=== PATIENT | female | born 1975 | race Caucasian/White ===

== ENCOUNTER → 2016-07-23 | Outpatient (CLI) | payer OTHER ==
--- NOTE | 2016-07-23 17:33 | US ---
EXAMINATION TYPE: US pelvic complete DATE OF EXAM: 07/23/2016 3:39 PM COMPARISON: NONE CLINICAL HISTORY: N94.6 Dysmenorrhea. Endometrial ablation 2 years ago; C Section x 2; TECHNIQUE: Transvaginal (TV) as patient's bladder not full and patient chose to have TV US. Date of LMP: 06/07/2016 EXAM MEASUREMENTS: Uterus: 10.0 x 5.4 x 4.8 cm Endometrial Stripe: 0.7 cm Right Ovary: 3.3 x 2.9 x 2.1 cm Left Ovary: 3.0 x 2.2 x 2.0 cm TECHNOLOGIST IMPRESSION: 1. Uterus: Retroverted; oval hypoechoic mixed area (uterine fibroid) at upper myometrium =0.8 x 1.1 x 0.7cm; small cyst in upper left myometrium = 0.3 x 0.3 x 0.3cm ; small cyst at lower uterine segme nt = 0.6 x 0.6 x 0.4cm 2. Endometrium: appearance is wnl, but unable to correlate thickness with LMP of 47days 3. Right Ovary: multiple small follicles 4. Left Ovary: multiple small follicles and largest =1.2 x 1.1 x 1.2cm Spectral, color and waveform doppler imaging shows good arterial and venous flow within the ovaries ; there is no evidence for ovarian torsion. 5. Bilateral Adnexa: wnl 6. Posterior cul-de-sac: small amount of free fluid = 3.9 x 1.9 x 0.6cm IMPRESSION: No endometrial thickening. There is a small amount of fluid in the cul-de-sac. No solid a dnexal mass.
== END | disposition home or self-care (01) ==
LOC: RADUSWWP 15:03
PROVIDERS: ATTEND Obstetrics & Gynecology
DX: N94.6 Dysmenorrhea, unspecified (principal)
CPT/HCPCS: 76830

== ENCOUNTER → 2016-08-16 | Outpatient (CLI) | payer OTHER ==
[2016-08-16 10:42] LABS: Basophils % (A) 1 %; CH 28.1; CHCM 32.3; Eosinophils % (A) 1 %; HCT 40.9 % (34.0-46.0); HDW 2.32; Luc # (Auto) 0.12; Luc % (Auto) 2; Lymphocytes # (A) 1.7 k/uL (1.0-4.8); Lymphocytes % (A) 31 %; MCH 27.9 pg (25.0-35.0); MCHC 31.9 g/dL (31.0-37.0); MCV 87.4 fL (80.0-100.0); Mean Platelet Volume 6.6; Monocytes # (A) 0.2 k/uL (0-1.0); Monocytes % (A) 4 %; Neutrophils # (A) 3.3 k/uL (1.3-7.7); Neutrophils % (A) 61 %; RBC 4.68 m/uL (3.80-5.40); RDW 13.1 % (11.5-15.5); WBC 5.4 k/uL (3.8-10.6); WBC (Perox) 5.84
[2016-08-16 11:08] LABS: Anion Gap 8 mmol/L; Blood Urea Nitrogen 12 mg/dL (7-17); Carbon Dioxide 27 mmol/L (22-30); Chloride 104 mmol/L (98-107); Glucose 95 mg/dL (74-99); Non-African American GFR(MDRD) >60 (>60 ml/min/1.73 sqM); Potassium 4.5 mmol/L (3.5-5.1); Sodium 139 mmol/L (137-145)
== END | disposition home or self-care (01) ==
LOC: LABPAT 10:17
PROVIDERS: ATTEND Obstetrics & Gynecology
DX: Z01.818 Encounter for other preprocedural examination (principal)
CPT/HCPCS: 80048; 85025

== ENCOUNTER 2016-08-23 06:00 | Observation (INO) | payer OTHER ==
[2016-08-17 16:20] VITALS: BMI 34.3
--- NOTE | 2016-08-22 16:24 | P.HPOB ---
History of Present Illness H&P Date: 08/22/16 Chief Complaint: dysmenorrhea 41 year old presents for TLH with da justin due to dysmenorrhea that worsened after an ablation. Review of Systems All systems: negative Constitutional: Denies chills, Denies fever Eyes: denies blurred vision, denies pain Ears, nose, mouth and throat: Denies headache, Denies sore throat Cardiovascular: Denies chest pain, Denies shortness of breath Respiratory: Denies cough Gastrointestinal: Denies abdominal pain, Denies diarrhea, Denies nausea, Denies vomiting Genitourinary: Denies dysuria, Denies hematuria Musculoskeletal: Denies myalgias Integumentary: Denies pruritus, Denies rash Neurological: Denies numbness, Denies weakness Psychiatric: Denies anxiety, Denies depression Endocrine: Denies fatigue, Denies weight change Past Medical History Past Medical History: Deep Vein Thrombosis (DVT), Thyroid Disorder Additional Past Medical History / Comment(s): GOITER ON THE THYROID, DVT-LEFT LEG History of Any Multi-Drug Resistant Organisms: None Reported Past Surgical History: Section Additional Past Surgical History / Comment(s): C SECTION X 2, UTERINE ABLATION, HYSTEROSCOPY Past Anesthesia/Blood Transfusion Reactions: No Reported Reaction Past Psychological History: Depression Smoking Status: Former smoker Past Alcohol Use History: Rare Additional Past Alcohol Use History / Comment(s): STARTED SMOKING AGE AT 22 AND QUIT AT AGE 23, SMOKED 1/2 PPD Past Drug Use History: None Reported - Past Family History Mother Family Medical History: No Reported History Medications and Allergies Home Medications Medication Instructions Recorded Confirmed Type Escitalopram [Lexapro] 10 mg PO HS 08/25/15 08/17/16 History Levothyroxine Sodium [Synthroid] 25 mcg PO DAILY 08/17/16 08/17/16 History Allergies Allergy/AdvReac Type Severity Reaction Status Date / Time No Known Allergies Allergy Verified 08/17/16 15:58 Exam Osteopathic Statement: *. No significant issues noted on an osteopathic structural exam other than those noted in the History and Physical/Consult. Heart: RRR Lungs: CTAB Abdomen: soft, nontender Extremeties: neg flor's Assessment and Plan (1) Dysmenorrhea Status: Acute Plan: 1. TLH with Da Justin, possible BSO, possible KENRICK BSO.
[~2016-08-23 06:00] MED LIST: DEXAMETHASONE SOD PHOSPHATE 10 MG/ML 1 ML VIAL IV ONE; LIDOCAINE 1% 20 ML VIAL (10MG/ML) FOR IV START INTRADERMA PRN; ONDANSETRON 4 MG/2 ML VIAL IVP ONE; SCOPOLAMINE 1.5MG/72HR PATCH TRANSDERM ONE; ceFAZolin 2 GM in SODIUM CHLORIDE 0.9% 100 ML IVPB ONE
[2016-08-23] MEDS: LACTATED RINGERS 1,000 ML IV SCH ×4 (06:40→14:19)
[2016-08-23] MEDS ORDERED: LIDOCAINE 1% 20 ML VIAL (10MG/ML) FOR IV START INTRADERMA ONE (06:54)
[2016-08-23] MEDS ORDERED: KETOROLAC 30 MG/ML 1 ML VIAL ONE (07:15)
[2016-08-23] MEDS ORDERED: NEOSTIGMINE 1 MG/ML 10 ML VIAL ONE (07:15)
[2016-08-23] MEDS ORDERED: KETAMINE 10 MG/ML 20 ML VIAL ONE (07:15)
[2016-08-23] MEDS ORDERED: GLYCOPYRROLATE 0.2 MG/ML 2 ML VIAL ONE (07:15)
[2016-08-23] MEDS ORDERED: ROCURONIUM BROMIDE 10 MG/ML 10 ML VIAL IV ONE (07:15)
[2016-08-23] MEDS ORDERED: fentaNYL (PF) 50 MCG/ML 2 ML AMP ONE (07:15)
[2016-08-23] MEDS ORDERED: LIDOCAINE 2% SYG (PF) 100 MG/5 ML ONE (07:15)
[2016-08-23] MEDS ORDERED: ACETAMINOPHEN IV (For NPO) 1,000 MG/100 ML VIAL ONE (07:15)
[2016-08-23] MEDS ORDERED: MIDAZOLAM 2 MG/2 ML VIAL ONE (07:15)
[2016-08-23] MEDS ORDERED: PROPOFOL 10 MG/ML 20 ML VIAL IV ONE (07:15)
[2016-08-23] MEDS ORDERED: BUPIVACAINE (PF) 0.25% 30 ML VIAL SQ ONE (07:32)
[2016-08-23] MEDS ORDERED: LACTATED RINGERS 1,000 ML IV ONE ×2 (08:47)
--- NOTE | 2016-08-23 09:08 | P.OP ---
Date of Procedure: 08/23/16 Preoperative Diagnosis: Dysmenorrhea Postoperative Diagnosis: 1. Dysmenorrhea Procedure(s) Performed: Total laparoscopic hysterectomy with left salpingectomy using da Carissa Anesthesia: ALESSIA Surgeon: Bessie Hernández Comic Book Artist #1: Warner Levy Estimated Blood Loss (ml): 50 IV fluids (ml): 600 Urine output (ml): 100 Pathology: other (Uterus, cervix, left fallopian tube) Condition: stable Disposition: PACU Operative Findings: Normal uterus, left fallopian tube was scarred to the left ovary and looked mildly dilated, normal right fallopian tube normal bilateral ovaries Description of Procedure: Patient taken the operating room where general anesthesia was obtained without difficulty. She is prepped and draped in normal sterile fashion dorsal lithotomy position, legs placed in the Sam stirrups. Weighted speculum placed in the vagina and the anterior lip the cervix was grasped with single- tooth tenaculum. The uterus sounded to 6 cm and the cervix diameter was 3.5 cm. The appropriate manipulator tip and ring were placed on the Rachel manipulator. The Rachel manipulator was then placed in the uterus. Richmond catheter was also placed. Attention was then turned to the abdomen and gloves were changed. A 5 mm supraumbilical incision was made the scalpel and a 5 mm optical trocar was placed under direct visualization. 10 cm to the right of this and 2 cm down a 5 mm incision was made and 8 mm da Carissa port was placed under direct visualization. Same measurements on the opposite side of the patient's abdomen, the 5 mm incision was made and 8 mm da Carissa port was placed under direct visualization. In the left upper quadrant a 10 mm incision was made and a 10 mm optical trocar was placed under direct visualization. The 5 mm optical trocar was then replaced with the 8 mm da Carissa camera port. The robot was docked on patient's right side. The camera was introduced and then the monopolar curved scissor and [place] bipolar placed under direct visualization. I broke scrub and went to the physician console. The left mesosalpinx was cauterized with the [place] bipolar and cut with monopolar curved scissors to help remove the left fallopian tube. The left utero-ovarian ligament was cauterized with the [place] bipolar and cut with monopolar curved scissors. The left round ligament was cauterized with the [place] bipolar and cut with monopolar curved scissors. The posterior leaf of the broad ligament was taken down using the monopolar curved scissors. Anterior leaf of the broad ligament was then taken down using the monopolar curved scissors. The uterine artery was cauterized with the [place] bipolar and cut with monopolar curved scissors. The bladder flap was then started using the monopolar curved scissors. Attention was then turned to the right side of the patient's anatomy and the right infundibular pelvic ligament was cauterized with the [place] bipolar and cut with monopolar curved scissors. The right round ligament was cauterized with the [place] bipolar and cut with monopolar curved scissors. Posterior leaf of the broad ligament was taken down using the monopolar curved scissors and the anterior leaf was taken down using the monopolar curved scissors. The uterine artery was cauterized the [place] bipolar cut with monopolar curved scissors. The bladder flap was then finished on this side. Anterior colpotomy was made using the monopolar curved scissors. The rest of the uterus was from the vaginal cuff by following the ring around with the monopolar curved scissors through the uterosacral ligaments back to the anterior portion. Once the uterus and cervix were amputated they were pulled through the vaginal cuff. Hemostasis was assured. The instruments were changed for the Cardier forcep and the bri suture cut. The vaginal cuff was then closed using O stratafix barbed suture in a running fashion. The pelvis was irrigated and there was some oozing on the left portion of the vaginal cuff. 0 Vicryl was used in a [id number] stitch to achieve hemostasis. Hemostasis was again assured and the pelvis was irrigated. All instruments were removed from the abdomen and the robot was undocked. I scrubbed back in to perform a cystoscopy. There were jets from both ureteral orifices. The abdominal incisions were closed with 4-0 Vicryl in a subcuticular fashion. Patient tolerated the procedure well, sponge and instrument counts correct 2 and she was taken to recovery room in stable condition condition
[2016-08-23] MEDS: HYDROmorphone 1 MG/ML 1 ML SYRINGE IVP PRN ×4 (09:17→09:55)
[2016-08-23] MEDS ORDERED: diphenhydrAMINE 50 MG/ML 1 ML VIAL IVP PRN (09:47)
[2016-08-23] MEDS ORDERED: ONDANSETRON 4 MG/2 ML VIAL IVP PRN (09:47)
[2016-08-23] MEDS ORDERED: SIMETHICONE 80 MG CHEWABLE PO PRN (09:47)
[2016-08-23] MEDS ORDERED: METOCLOPRAMIDE 5 MG/ML 2 ML VIAL IVP PRN (09:47)
[2016-08-23] MEDS ORDERED: ZOLPIDEM 5 MG TAB PO PRN (09:47)
[2016-08-23] MEDS ORDERED: IBUPROFEN 600 MG TAB PO PRN (09:47)
[2016-08-23] MEDS: Acetaminophen-Codeine 300-30mg TAB PO PRN ×3 (11:45→18:37)
[2016-08-23] MEDS: KETOROLAC 30 MG/ML 1 ML VIAL IVP PRN ×2 (14:19→20:35)
[2016-08-23] MEDS: SENNOSIDES-DOCUSATE SODIUM 1 EACH TAB PO SCH (20:34)
[2016-08-23] MEDS ORDERED: ESCITALOPRAM 10 MG TAB PO SCH (21:00)
[2016-08-24] MEDS: Acetaminophen-Codeine 300-30mg TAB PO PRN ×2 (00:37→06:17)
[2016-08-24] MEDS: KETOROLAC 30 MG/ML 1 ML VIAL IVP PRN ×2 (03:24→09:22)
[2016-08-24 04:55] VITALS: RESP 20
[2016-08-24] MEDS ORDERED: LEVOTHYROXINE 25 MCG TAB PO SCH (06:30)
[2016-08-24 07:02] LABS: Basophils % (A) 0 %; CH 27.7; Eosinophils % (A) 0 %; HCT 37.4 % (34.0-46.0); HDW 2.28; HGB 11.9 gm/dL (11.4-16.0); Luc % (Auto) 1; Lymphocytes # (A) 2.2 k/uL (1.0-4.8); Lymphocytes % (A) 23 %; MCH 27.8 pg (25.0-35.0); MCHC 31.9 g/dL (31.0-37.0); MCV 87.1 fL (80.0-100.0); Mean Platelet Volume 6.6; Monocytes # (A) 0.4 k/uL (0-1.0); Monocytes % (A) 5 %; Neutrophils # (A) 6.5 k/uL (1.3-7.7); Neutrophils % (A) 71 %; RDW 13.1 % (11.5-15.5); WBC 9.2 k/uL (3.8-10.6); WBC (Perox) 10.25
[2016-08-24 07:25] LABS: Manual Review Performed
[2016-08-24] MEDS: SENNOSIDES-DOCUSATE SODIUM 1 EACH TAB PO SCH (08:03)
[2016-08-24 08:40] VITALS: BP 101/70; PULSE 78; TEMP 97.5
--- NOTE | 2016-08-24 09:03 | P.DS ---
Providers Date of admission: 08/23/16 20:47 Expected date of discharge: 08/24/16 Attending physician: Bessie Hernández Primary care physician: Sara Gallardo - Discharge Diagnosis(es) (1) Dysmenorrhea Current Visit: Yes Status: Acute Hospital Course: Patient presented for total laparoscopic hysterectomy using the da Carissa robot. She underwent this procedure without complication. Her postoperative course was uneventful. She is passing flatus tolerating regular diet. Ambulating and voiding without difficulty. She denies nausea, vomiting, chest pain, shortness of breath or calf pain. She'll be discharged home postoperative day #1 in stable condition to follow-up with me in 3 weeks. Plan - Discharge Summary New Discharge Prescriptions: Acetaminophen-Codeine 300-30mg [Tylenol #3] 2 tab PO Q6H PRN #30 tablet PRN Reason: Pain Ibuprofen [Motrin] 600 mg PO Q6HR PRN #30 tab PRN Reason: Mild Pain Or Fever >= 100.5 Discharge Medication List Escitalopram [Lexapro] 10 mg PO HS 08/25/15 [History] Levothyroxine Sodium [Synthroid] 25 mcg PO DAILY 08/17/16 [History] Acetaminophen-Codeine 300-30mg [Tylenol #3] 2 tab PO Q6H PRN #30 tablet [Rx] Ibuprofen [Motrin] 600 mg PO Q6HR PRN #30 tab 08/24/16 [Rx]
== END 2016-08-24 11:00 | disposition home or self-care (01) ==
LOC: OR 06:00 → 6PED 08:42 → OR 20:47
PROVIDERS: ADMIT Obstetrics & Gynecology; ATTEND Obstetrics & Gynecology
DX: N94.6 Dysmenorrhea, unspecified (principal); Z86.718 Personal history of other venous thrombosis and embolism; E04.9 Nontoxic goiter, unspecified; Z87.891 Personal history of nicotine dependence; Z79.899 Other long term (current) drug therapy; F32.9 Major depressive disorder, single episode, unspecified
CPT/HCPCS: 58571; S2900; 81025; 85025; 86850; 86900; 86901; 88307; 96374; 96376

== ENCOUNTER 2016-10-01 20:38 | Inpatient (IN) | payer OTHER ==
[2016-10-01] MEDS ORDERED: KETOROLAC 30 MG/ML 1 ML VIAL IVP STA (22:09)
[2016-10-01] MEDS ORDERED: SODIUM CHLORIDE 0.9% 1,000 ML IV STA (22:09)
[2016-10-01] MEDS ORDERED: RX INFO: IV CONTRAST WAS GIVEN 1 EACH MISC MISCELLANE PRN (22:09)
--- NOTE | 2016-10-01 22:19 | ED ---
Abdominal Pain HPI - General Source: patient, RN notes reviewed Mode of arrival: ambulatory Limitations: no limitations <Luann Hammonds - Last Filed: 10/02/16 03:02> <Breezy Goldstein - Last Filed: 10/04/16 02:59> - General Chief Complaint: Abdominal Pain Stated Complaint: L Flank Pain-Post Op 5wks Time Seen by Provider: 10/01/16 22:02 - History of Present Illness Initial Comments: 41-year-old female presents to the emergency department with a chief complaint of right flank pain radiates in the right lower quadrant. Patient states she's had this since about 5:00 today. Patient states she is about 5 weeks post hysterectomy. Patient states she hasn't had any fever chills. Patient states she has had some nausea. Patient denies any changes in bowel or bladder habits. Patient states just this constant pain that does not seem to go away. Patient states she has had pelvic pain in the past prior to the hysterectomy but this is different. Patient states that she was concerned due to her continued pain so she thought that she should be evaluated.Patient denies any recent fever, chills, shortness of breath, chest pain, back pain, vomiting, numbness or tingling, dysuria or hematuria, constipation or diarrhea, headaches or visual changes, or any other current symptoms. (Luann Hammonds) - Related Data Home Medications Medication Instructions Recorded Confirmed Escitalopram [Lexapro] 10 mg PO DAILY 08/25/15 10/01/16 Levothyroxine Sodium [Synthroid] 50 mcg PO HS 10/01/16 10/01/16 Allergies Allergy/AdvReac Type Severity Reaction Status Date / Time No Known Allergies Allergy Verified 10/01/16 22:21 Review of Systems ROS Other: All systems not noted in ROS Statement are negative. <Luann Hammonds - Last Filed: 10/02/16 03:02> ROS Other: All systems not noted in ROS Statement are negative. <Breezy Goldstein - Last Filed: 10/04/16 02:59> ROS Statement: Those systems with pertinent positive or pertinent negative responses have been documented in the HPI. Past Medical History Past Medical History: Deep Vein Thrombosis (DVT), Thyroid Disorder Additional Past Medical History / Comment(s): GOITER ON THE THYROID, DVT-LEFT LEG History of Any Multi-Drug Resistant Organisms: None Reported Past Surgical History: Section, Hysterectomy Additional Past Surgical History / Comment(s): C SECTION X 2, UTERINE ABLATION, HYSTEROSCOPY Past Anesthesia/Blood Transfusion Reactions: No Reported Reaction Past Psychological History: Anxiety, Depression Smoking Status: Former smoker Past Alcohol Use History: Rare Additional Past Alcohol Use History / Comment(s): STARTED SMOKING AGE AT 22 AND QUIT AT AGE 23, SMOKED 1/2 PPD Past Drug Use History: None Reported - Past Family History Mother Family Medical History: No Reported History <Luann Hammonds - Last Filed: 10/02/16 03:02> General Exam Limitations: no limitations <Luann Hammonds - Last Filed: 10/02/16 03:02> <Breezy Goldstein - Last Filed: 10/04/16 02:59> - General Exam Comments Initial Comments: General: The patient is awake and alert, in no distress, and does not appear acutely ill. Eye: Pupils are equal, round and reactive to light, extra-ocular movements are intact; there is normal conjunctiva bilaterally. No signs of icterus. Ears, nose, mouth and throat: There are moist mucous membranes and no oral lesions. Neck: The neck is supple, there is no tenderness. Cardiovascular: There is a regular rate and rhythm. No murmur, rub or gallop is appreciated. Respiratory: Lungs are clear to auscultation, respirations are non-labored, breath sounds are equal. No wheezes, stridor, rales, or rhonchi. Gastrointestinal: Soft, non-distended, non-tender abdomen without masses or organomegaly noted. There is no rebound or guarding present. No CVA tenderness. Bowel sounds are unremarkable. Back: There is no tenderness to palpation in the midline. There is no obvious deformity. No rashes noted. Musculoskeletal: Normal ROM, no tenderness, There is no pedal edema. There is no calf tenderness or swelling. Sensation intact. Pulses equal bilaterally 2+. Neurological: CN II-XII intact, There are no obvious motor or sensory deficits. Coordination appears grossly intact. Speech is normal. Skin: Skin is warm and dry and no rashes or lesions are noted. Psychiatric: Cooperative, appropriate mood & affect, normal judgment. (Luann Hammonds) Medical Decision Making - Lab Data Result diagrams: 10/01/16 22:40 10/01/16 22:40 <Luann Hammonds - Last Filed: 10/02/16 03:02> - Lab Data Result diagrams: 10/03/16 09:03 10/01/16 22:40 <Breezy Goldstein - Last Filed: 10/04/16 02:59> - Medical Decision Making 41-year-old female presents with right sided abdominal pain. At this time patient's CAT scan and ultrasound are reviewed. At this time due to the patient 's finding of the thrombosis we will start her on heparin due to his concern for possible infection being the cause of the thrombosis we'll also start her on antibiotics. This was discussed with patient's covering SATIN FINISHER doctor Minor as well as Dr. Blanca regarding the care and urinary doing the plan. Patient is feeling relief in the room and is starting to feel better. This time we'll admit her for continued care. (Luann Hammonds) I saw this patient in conjunction with the physician radiology physician assistant. I performed independent history and physical exam. Agree with case management. (Breezy Goldstein) - Lab Data Lab Results 10/01/16 10/01/16 10/01/16 Range/Units 22:40 22:40 22:40 WBC 10.1 (3.8-10.6) k/uL RBC 4.66 (3.80-5.40) m/uL Hgb 13.2 (11.4-16.0) gm/dL Hct 39.8 (34.0-46.0) % MCV 85.4 (80.0-100.0) fL MCH 28.4 (25.0-35.0) pg MCHC 33.2 (31.0-37.0) g/dL RDW 13.2 (11.5-15.5) % Plt Count 240 (150-450) k/uL Neutrophils % 63 % Lymphocytes % 29 % Monocytes % 5 % Eosinophils % 1 % Basophils % 1 % Neutrophils # 6.3 (1.3-7.7) k/uL Lymphocytes # 2.9 (1.0-4.8) k/uL Monocytes # 0.5 (0-1.0) k/uL Eosinophils # 0.1 (0-0.7) k/uL Basophils # 0.1 (0-0.2) k/uL Sodium 141 (137-145) mmol/L Potassium 4.1 (3.5-5.1) mmol/L Chloride 103 (98-107) mmol/L Carbon Dioxide 28 (22-30) mmol/L Anion Gap 10 mmol/L BUN 13 (7-17) mg/dL Creatinine 0.80 (0.52-1.04) mg/dL Est GFR (MDRD) Af Amer >60 (>60 ml/min/1.73 sqM) Est GFR (MDRD) Non-Af >60 (>60 ml/min/1.73 sqM) Glucose 96 (74-99) mg/dL Calcium 9.7 (8.4-10.2) mg/dL Total Bilirubin 0.3 (0.2-1.3) mg/dL AST 18 (14-36) U/L ALT 33 (9-52) U/L Alkaline Phosphatase 114 (38-126) U/L Total Protein 7.8 (6.3-8.2) g/dL Albumin 4.4 (3.5-5.0) g/dL Amylase 64 (30-110) U/L Lipase 171 (23-300) U/L Urine Color Yellow Urine Appearance Clear (Clear) Urine pH 6.0 (5.0-8.0) Ur Specific [place]ard 1.022 (1.001-1.035) Urine Protein Negative (Negative) Urine Glucose (UA) Negative (Negative) Urine Ketones Negative (Negative) Urine Blood Negative (Negative) Urine Nitrite Negative (Negative) Urine Bilirubin Negative (Negative) Urine Urobilinogen <2.0 (<2.0) mg/dL Ur Leukocyte Esterase Negative (Negative) Disposition Time of Disposition: 03:03 Decision Date: 10/02/16 Decision Time: 03:04 <Luann Hammonds - Last Filed: 10/02/16 03:02> <Breezy Goldstein - Last Filed: 10/04/16 02:59> Clinical Impression: Thrombosis of pelvic vein, Hx of hysterectomy Disposition: ADMITTED IP TO THIS [facility] Condition: Stable
[2016-10-01 22:52] LABS: Basophils # (A) 0.1 k/uL (0-0.2); Basophils % (A) 1 %; CH 28.2; CHCM 33.1; Eosinophils # (A) 0.1 k/uL (0-0.7); Eosinophils % (A) 1 %; HCT 39.8 % (34.0-46.0); HDW 2.36; HGB 13.2 gm/dL (11.4-16.0); Luc # (Auto) 0.14; Luc % (Auto) 1; Lymphocytes # (A) 2.9 k/uL (1.0-4.8); Lymphocytes % (A) 29 %; MCH 28.4 pg (25.0-35.0); MCHC 33.2 g/dL (31.0-37.0); MCV 85.4 fL (80.0-100.0); Mean Platelet Volume 6.5; Monocytes # (A) 0.5 k/uL (0-1.0); Monocytes % (A) 5 %; Neutrophils # (A) 6.3 k/uL (1.3-7.7); Neutrophils % (A) 63 %; RBC 4.66 m/uL (3.80-5.40); RDW 13.2 % (11.5-15.5); WBC 10.1 k/uL (3.8-10.6); WBC (Perox) 10.12
[2016-10-01 22:53] LABS: Appearance,Urine Clear (Clear); Bilirubin,Urine Negative (Negative); Glucose,Urine (UA) Negative (Negative); Ketones,Urine Negative (Negative); Leukocyte Esterase,Urine Negative (Negative); Nitrite,Urine Negative (Negative); Protein,Urine Negative (Negative); Specific Gravity,Urine 1.022 (1.001-1.035); UA Billing (MACRO vs. MICRO) CHEM; Urobilinogen,Urine <2.0 mg/dL (<2.0)
[2016-10-01 23:01] LABS: ALT 33 U/L (9-52); AST 18 U/L (14-36); Alkaline Phosphatase 114 U/L (38-126); Amylase 64 U/L (30-110); Anion Gap 10 mmol/L; Blood Urea Nitrogen 13 mg/dL (7-17); Calcium 9.7 mg/dL (8.4-10.2); Carbon Dioxide 28 mmol/L (22-30); Chloride 103 mmol/L (98-107); Glucose 96 mg/dL (74-99); Non-African American GFR(MDRD) >60 (>60 ml/min/1.73 sqM); Potassium 4.1 mmol/L (3.5-5.1); Sodium 141 mmol/L (137-145); Total Bilirubin 0.3 mg/dL (0.2-1.3); Total Protein 7.8 g/dL (6.3-8.2)
--- NOTE | 2016-10-02 00:03 | CT ---
EXAM: CT Abdomen and Pelvis With Intravenous Contrast CLINICAL HISTORY: Reason: Pain TECHNIQUE: Axial computed tomography images of the abdomen and pelvis with intravenous contrast. CTDI is 42.67 mGy and DLP is 1056.21 mGy-cm This CT exam was performed using one or more of the following dose reduction techniques: automated exposure control, adjustment of the mA and/or kV according to patient size, and/or use of iterative reconstruction technique. COMPARISON: No relevant prior studies available. FINDINGS: Lower thorax: No acute findings. ABDOMEN: Liver: Unremarkable. No mass. Gallbladder and bile ducts: Unremarkable. No calcified stones. No ductal dilation. Pancreas: Unremarkable. No mass. No ductal dilation. Spleen: Unremarkable. No splenomegaly. Adrenals: Unremarkable. No mass. Kidneys and ureters: Unremarkable. No solid mass. No hydronephrosis. Stomach and bowel: Unremarkable. No obstruction. No mucosal thickening. Appendix: No findings to suggest acute appendicitis. PELVIS: Bladder: Unremarkable. No mass. Reproductive: Uterus is not well-seen and may be surgically absent. ABDOMEN and PELVIS: Intraperitoneal space: Unremarkable. No free air. No significant fluid collection. Bones/joints: No acute fracture. No dislocation. Soft tissues: Unremarkable. Vasculature: Prominent gonadal veins and slight surrounding stranding. The veins are not well-opacified. Cannot entirely exclude thrombus or thrombophlebitis involving these veins. There is also some stranding about the nonenlarged cystic ovaries which is nonspecific. No free fluid. Lymph nodes: Unremarkable. No enlarged lymph nodes. IMPRESSION: Prominent gonadal veins and slight surrounding stranding. The veins are not well-opacified. Cannot entirely exclude thrombus or thrombophlebitis involving these veins. Stranding about the nonenlarged cystic ovaries which is nonspecific but may be inflammatory. Could further investigation with ultrasound as clinically indicated. No other definite acute or inflammatory disease or bowel obstruction. [employer] 10/02/16 00:20 Verify Receipt Verified receipt with DOMENICA Hollingsworth, report given to Dr. Bright on 10/02 00:20 (-04:00)
--- NOTE | 2016-10-02 02:23 | US ---
EXAM: US Pelvis Complete, Transabdominal CLINICAL HISTORY: Reason: Pain TECHNIQUE: Real-time transabdominal and transvaginal pelvic ultrasound (complete) with image documentation. COMPARISON: No relevant prior studies available. FINDINGS: Uterus/cervix: Surgically absent uterus. Normal endometrial stripe thickness. No myometrial mass. Right and left ovary: Both ovaries are normal with blood flow demonstrated to them. No adnexal masses. Right ovary measures 3.2 x 2.0 x 2.2 cm. Left ovary measures 2.8 x 1.8 x 1.8 cm. Free fluid: No free fluid. Bladder: Unremarkable as visualized. Wall is normal thickness for degree of distention. Other findings: No other abnormalities. IMPRESSION: Surgically absent uterus with no significant abnormalities.
[2016-10-02] MEDS ORDERED: HEPARIN SODIUM,PORCINE 5,000 UNIT/ML 1 ML VIAL IV PRN (02:58)
[2016-10-02] MEDS ORDERED: AMPICILLIN-SULBACTAM 3 GM in SODIUM CHLORIDE 0.9% 100 ML IVPB STA (02:58)
[2016-10-02] MEDS ORDERED: HEPARIN SODIUM,PORCINE 5,000 UNIT/ML 1 ML VIAL IV ONE (02:58)
[2016-10-02] MEDS ORDERED: NALOXONE 0.4 MG/ML 1 ML VIAL IV PRN (03:00)
[2016-10-02] MEDS ORDERED: KETOROLAC 30 MG/ML 1 ML VIAL IVP PRN (03:00)
[2016-10-02] MEDS ORDERED: HYDROmorphone 1 MG/ML 1 ML SYRINGE IV PRN (03:00)
[2016-10-02] MEDS ORDERED: ONDANSETRON 4 MG/2 ML VIAL IVP PRN (03:00)
[2016-10-02] MEDS: SODIUM CHLORIDE 0.9% 1,000 ML IV SCH ×3 (03:34→23:51)
[2016-10-02] MEDS: HEPARIN SODIUM,PORCINE/D5W PMX 25,000 UNIT in DEXTROSE/WATER 1 500ML.BAG IV SCH ×2 (03:39→09:19)
[2016-10-02 04:35] VITALS: BMI 35.7
[2016-10-02] MEDS: ESCITALOPRAM 10 MG TAB PO SCH (09:18)
[2016-10-02] MEDS: AMPICILLIN-SULBACTAM 1.5 GM in SODIUM CHLORIDE 0.9% 50 ML IVPB SCH ×3 (10:26→23:49)
--- NOTE | 2016-10-02 10:39 | P.GSHP ---
History of Present Illness 41 old female came last night to the emergency room with history of right flank pain radiating to the front of 24-hour duration patient had a workup including ultrasound and computed tomography scan of the abdomen Was Was Normal CT Showed [place] and Gonadal Veins and Cannot Rule Out Thrombophlebitis Patient Started on Heparin Has Been Admitted along with Antibiotic I Was Consulted for Further Evaluation No History of Crohn's Disease, Patient Has History of DVT in the past Affecting the Left Popliteal Vein Because of Trauma to the Left Ankle She Was Treated with Heparin and Coumadin Personal History No Known ALLERGY nonsmoker Surgical history patient had a abdominal hysterectomy about [address] Hernández On examination neck is supple no bruit appreciated Chest is clear first and second sound normal Abdomen is slight tenderness in the right flank with mild tenderness in the right lower quadrant no rebound or sounds are present femoral pulses are present Impression is thrombophlebitis of the wound and a vein to rule out hypercoagulation problem and it could be related to the surgery plan is patient is on antibiotic and heparin I will discuss the case with Dr. Polk he will follow -up in his office she will need a hypercoagulation study and patient can be put on elaquis Past Medical History Past Medical History: Deep Vein Thrombosis (DVT), Thyroid Disorder Additional Past Medical History / Comment(s): GOITER ON THE THYROID, DVT-LEFT LEG History of Any Multi-Drug Resistant Organisms: None Reported Past Surgical History: Section, Hysterectomy Additional Past Surgical History / Comment(s): C SECTION X 2, UTERINE ABLATION, HYSTEROSCOPY Past Anesthesia/Blood Transfusion Reactions: No Reported Reaction Past Psychological History: Anxiety, Depression Smoking Status: Never smoker Past Alcohol Use History: Rare Additional Past Alcohol Use History / Comment(s): STARTED SMOKING AGE AT 22 AND QUIT AT AGE 23, SMOKED 1/2 PPD Past Drug Use History: None Reported - Past Family History Mother Family Medical History: No Reported History Medications and Allergies Home Medications Medication Instructions Recorded Confirmed Type Escitalopram [Lexapro] 10 mg PO DAILY 08/25/15 10/01/16 History Levothyroxine Sodium [Synthroid] 50 mcg PO HS 10/01/16 10/01/16 History Allergies Allergy/AdvReac Type Severity Reaction Status Date / Time No Known Allergies Allergy Verified 10/01/16 22:21 Surgical - Exam Vital Signs Temp Pulse Resp BP Pulse Ox 98.3 F 76 18 117/79 97 10/01/16 20:54 10/01/16 20:54 10/01/16 20:54 10/01/16 20:54 10/01/16 20:54 Results - Labs 10/01/16 22:40 10/01/16 22:40 Abnormal Lab Results - Last 24 Hours (Table) 10/02/16 Range/Units 08:24 APTT 81.0 H (22.0-30.0) sec
[2016-10-02] MEDS ORDERED: ACETAMINOPHEN TAB 325 MG TAB PO PRN (12:36)
--- NOTE | 2016-10-02 12:36 | P.HPOB ---
History of Present Illness H&P Date: 10/02/16 Chief Complaint: Right flank pain This is a 41 y.o. female 3 para 2 who is status post total laparoscopic hysterectomy with left salpingectomy via da [place] on 08/23/[address] Hernández. She states yesterday afternoon she began having stabbing constant left flank pain that wrapped around towards the front right lower quadrant. She did take ibuprofen which did not help the pain and therefore she went to the hospital. Currently her pain has improved a little bit and she is not taking anything for pain at this time. She did have pelvic ultrasound and computed tomography scan performed. Pelvic ultrasound showed normal Doppler blood flow to both ovaries and normal sized ovaries. The CT Scan showed prominent gonadal veins with stranding and cannot exclude a thrombus or thrombophlebitis in the gonadal veins. Her kidneys did appear normal with no hydronephrosis noted. Patient states her postoperative course has been uneventful up until this time. Obstetrical history: . History of 2 sections. History of 1 miscarriage. Review of Systems Constitutional: Denies chills, Denies fever Gastrointestinal: Reports abdominal pain (Right lower quadrant) Genitourinary: Reports flank pain (Right flank), Denies abnormal vaginal bleeding, Denies dysuria Menstruation: Reports amenorrhea Neurological: Denies numbness, Denies weakness Past Medical History Past Medical History: Deep Vein Thrombosis (DVT), Thyroid Disorder Additional Past Medical History / Comment(s): GOITER ON THE THYROID, DVT-LEFT LEG following a left ankle fracture in 2012 History of Any Multi-Drug Resistant Organisms: None Reported Past Surgical History: Section, Hysterectomy (Total laparoscopic hysterectomy with left salpingectomy on 08/23/2016), Uterine Ablation Additional Past Surgical History / Comment(s): C SECTION X 2, UTERINE ABLATION, HYSTEROSCOPY Past Anesthesia/Blood Transfusion Reactions: No Reported Reaction Past Psychological History: Anxiety, Depression Smoking Status: Never smoker Past Alcohol Use History: Rare Additional Past Alcohol Use History / Comment(s): STARTED SMOKING AGE AT 22 AND QUIT AT AGE 23, SMOKED 1/2 PPD Past Drug Use History: None Reported - Past Family History Mother Family Medical History: No Reported History Sister(s) Additional Family Medical History / Comment(s): Positive for MTHRF heterozygous , no history of clots Medications and Allergies Home Medications Medication Instructions Recorded Confirmed Type Escitalopram [Lexapro] 10 mg PO DAILY 08/25/15 10/01/16 History Levothyroxine Sodium [Synthroid] 50 mcg PO HS 10/01/16 10/01/16 History Allergies Allergy/AdvReac Type Severity Reaction Status Date / Time No Known Allergies Allergy Verified 10/01/16 22:21 Exam Osteopathic Statement: *. No significant issues noted on an osteopathic structural exam other than those noted in the History and Physical/Consult. - Vital Signs Vital signs: Vital Signs Temp Pulse Pulse Resp BP BP Pulse Ox 10/02/16 08:00 65 16 10/02/16 07:00 97.7 F 65 16 103/64 97 10/02/16 04:40 97.7 F 81 18 119/76 98 10/02/16 04:06 97.3 F L 77 16 127/66 100 Intake and Output 10/01/16 10/02/16 10/02/16 22:59 06:59 14:59 Intake Total 189.663 Balance 189.663 Intake: Intake, IV Titration 189.663 Amount Heparin Sodium,Porcine/ 189.663 D5w Pmx 25,000 unit In Dextrose/Water 1 500ml. bag @ 18 UNITS/KG/HR 33. 47 mls/hr IV .[id number] [facility] Rx#:[id number] Other: Voiding Method Toilet # Voids 1 1 Weight 94 kg 94 kg Patient Weight 10/03/16 06:59 Weight 94 kg Gen.: Well-developed well-nourished cooperative female in no acute distress. HEENT: Within normal limits Heart: Regular rate and rhythm Lungs: Clear to auscultation bilaterally Abdomen: Soft, relatively nontender with minimal tenderness noted in the right lower quadrant near the hip. Incisions appear well-healed and nontender. Back: Right flank tenderness is noted with no guarding or rebound noted. Extremities: Negative Homans - OBG Physical Exam Abdomen: Tenderness is noted in the right flank area underneath the rib cage and into the hip area. No guarding or rebound is noted. Abdomen: no diffuse tenderness, no mass Abdomen detail: right lower quadrant: tenderness (Very minimal) Results Result Diagrams: 10/01/16 22:40 10/01/16 22:40 Abnormal Lab Results - Last 24 Hours (Table) 10/02/16 Range/Units 08:24 APTT 81.0 H (22.0-30.0) sec Comments: Pelvic ultrasound reviewed CT scan - abdomen: report reviewed CT scan - pelvis: report reviewed Assessment and Plan (1) Hx of hysterectomy Status: Acute (2) Thrombosis of pelvic vein Status: Acute Plan: Plan is admission for IV antibiotics and heparin due to possibility of thrombophlebitis or thrombus of pelvic veins. I have advised the patient that I am not 100% certain that this is the case due to the fact that she had normal blood flow to her ovaries on pelvic ultrasound. I do appreciate input from Dr. Blanca and management of heparin and/or anticoagulants. I have advised her that she can move around as much and she feels comfortable and have a regular diet. Will plan to continue IV antibiotics for at least 24 hours and await further input from vascular regarding transition into oral anticoagulants. Will continue to observe.
[2016-10-02] MEDS: LEVOTHYROXINE 50 MCG TAB PO SCH (20:29)
[2016-10-03] MEDS: SODIUM CHLORIDE 0.9% 1,000 ML IV SCH (03:31)
[2016-10-03] MEDS: AMPICILLIN-SULBACTAM 1.5 GM in SODIUM CHLORIDE 0.9% 50 ML IVPB SCH ×3 (06:33→18:50)
[2016-10-03] MEDS: ESCITALOPRAM 10 MG TAB PO SCH (08:15)
[2016-10-03 09:32] LABS: Basophils % (A) 0 %; CH 27.9; CHCM 32.3; Eosinophils # (A) 0.2 k/uL (0-0.7); Eosinophils % (A) 3 %; HCT 36.5 % (34.0-46.0); HDW 2.34; HGB 11.8 gm/dL (11.4-16.0); Luc # (Auto) 0.08; Luc % (Auto) 1; Lymphocytes # (A) 1.9 k/uL (1.0-4.8); Lymphocytes % (A) 36 %; MCH 28.2 pg (25.0-35.0); MCHC 32.4 g/dL (31.0-37.0); Mean Platelet Volume 6.6; Monocytes # (A) 0.2 k/uL (0-1.0); Monocytes % (A) 4 %; Neutrophils # (A) 2.9 k/uL (1.3-7.7); Neutrophils % (A) 55 %; RDW 13.3 % (11.5-15.5); WBC 5.3 k/uL (3.8-10.6); WBC (Perox) 5.52
[2016-10-03] MEDS: HEPARIN SODIUM,PORCINE/D5W PMX 25,000 UNIT in DEXTROSE/WATER 1 500ML.BAG IV SCH (09:55)
--- NOTE | 2016-10-03 10:57 | P.PN ---
Subjective Principal diagnosis: Right flank, pelvic pain Patient states she is still feeling some pain more so in the right mid to upper quadrant with palpation. The pain is less than when she arrived in the ER. She states the pain at that time was a 10 and now it is about a 3-4. She still has some flank pain also. She is not sure if the pain in her abdomen is more because people keep pushing on it versus new pain. She denies nausea or vomiting. She did take some Tylenol yesterday for the pain. Objective - Vital Signs Vital signs: Vital Signs Temp 97.6 F 10/03/16 07:00 Pulse 61 10/03/16 08:00 Resp 16 10/03/16 08:00 BP 117/63 10/03/16 07:00 Pulse Ox 97 10/03/16 07:00 Intake & Output 10/02/16 10/03/16 10/03/16 18:59 06:59 18:59 Intake Total 599.896 389.767 100 Balance 599.896 389.767 100 Weight 94 kg 94 kg Intake: Intake, IV Titration 399.896 289.767 Amount Heparin Sodium,Porcine/ 399.896 289.767 D5w Pmx 25,000 unit In Dextrose/Water 1 500ml. bag @ 18 UNITS/KG/HR 33. 47 mls/hr IV .[id number] Rx#:[id number] Oral 200 100 100 Other: Voiding Method Toilet Toilet # Voids 2 2 2 - Constitutional General appearance: Present: cooperative, no acute distress - Gastrointestinal Gastrointestinal Comment(s): Right flank tenderness with no guarding or rebound General gastrointestinal: Present: normal bowel sounds, soft Localized gastrointestinal: tender: RUQ (Mild), RLQ (Mild) - Labs CBC & Chem 7: 10/03/16 09:03 10/01/16 22:40 Labs: Abnormal Lab Results - Last 24 Hours (Table) 10/02/16 10/03/16 Range/Units 15:25 09:03 APTT 50.1 H 48.8 H (22.0-30.0) sec Assessment and Plan (1) Hx of hysterectomy Status: Acute (2) Thrombosis of pelvic vein Status: Acute Plan: I spoke with Dr. Blanca this morning who is planning on reviewing the CAT scan and ultrasound with the radiologist in the morning. Of note, the radiologist did state that there was a normal endometrial thickness despite the patient having a hysterectomy. Dr. Blanca plans to discontinue the heparin and switched her over to Eliquis today. We will continue the IV antibiotics until tomorrow morning. Most likely after radiology review, the patient may be discharged home on Eliquis and follow up with Dr. Polk as an outpatient for hypercoagulability workup.
--- NOTE | 2016-10-03 11:00 | P.PN ---
Progress Note - Text 41 old white female, patient had a hysterectomy 5 weeks ago patient came to the emergency room with history of for right lower quadrant pain patient went for computed tomography scan report came as a possible thrombophlebitis of the gonadal veins patient also has a history of DVT in the past affecting the left lower extremity she has a family history of DVT affecting her sister for DVT On examination patient still had tenderness right lower quadrant no rebound no peritoneal sign noted patient was started on heparin and antibiotic today her CTs to the pediatric we will stop the heparin and started her on eliquis 10 mg twice a day I will review the CAT scan with the radiologist in a.m. and 2 new with antibiotic
[2016-10-03] MEDS: APIXABAN 5 MG TAB PO SCH ×2 (11:40→21:38)
[2016-10-03] MEDS: LEVOTHYROXINE 50 MCG TAB PO SCH (21:38)
[2016-10-04] MEDS: AMPICILLIN-SULBACTAM 1.5 GM in SODIUM CHLORIDE 0.9% 50 ML IVPB SCH ×3 (01:02→11:53)
[2016-10-04 07:41] VITALS: BP 109/59; PULSE 69; RESP 18; TEMP 97.6
[2016-10-04] MEDS: ESCITALOPRAM 10 MG TAB PO SCH (08:43)
[2016-10-04] MEDS: APIXABAN 5 MG TAB PO SCH (08:43)
[2016-10-04 10:39] LABS: Basophils % (A) 1 %; CH 28.1; CHCM 31.7; Eosinophils # (A) 0.1 k/uL (0-0.7); Eosinophils % (A) 2 %; HCT 39.9 % (34.0-46.0); HDW 2.27; HGB 12.7 gm/dL (11.4-16.0); Luc # (Auto) 0.11; Luc % (Auto) 2; Lymphocytes # (A) 1.5 k/uL (1.0-4.8); Lymphocytes % (A) 25 %; MCH 28.2 pg (25.0-35.0); MCHC 31.7 g/dL (31.0-37.0); Mean Platelet Volume 6.8; Monocytes # (A) 0.3 k/uL (0-1.0); Monocytes % (A) 5 %; Neutrophils # (A) 4.1 k/uL (1.3-7.7); Neutrophils % (A) 65 %; RBC 4.49 m/uL (3.80-5.40); RDW 13.2 % (11.5-15.5); WBC 6.2 k/uL (3.8-10.6); WBC (Perox) 6.53
[2016-10-04] MEDS ORDERED: FLUCONAZOLE 100 MG TAB PO STA (12:58)
--- NOTE | 2016-10-04 13:08 | P.PN ---
Progress Note - Text 41-year-old female history of abdominal pain right lower quadrant patient had a CT from an showed it over and when thrombophlebitis this patient had a hysterectomy done about 5 weeks ago he also has a history of DVT in the left leg in the past patient was started on heparin and ampicillin I have reviewed the CAT scan with the radiologist the right ovarian vein is large and has a hypoechoic density suggestive of a thrombophlebitis of the ovarian vein discussed with Dr. Polk patient put on liquids 10 mg twice a day for 1 week and 5 mg twice a day patient also will be on by mouth antibiotics and also discussed with Dr. Hernández patient going home today with follow-up in my office in 1 month and we will do ultrasound of the abdomen thank you
--- NOTE | 2016-10-04 13:24 | P.DS ---
Providers Date of admission: 10/02/16 03:01 Expected date of discharge: 10/04/16 Attending physician: Estrellita Gaxiola Consults: 10/02/16 10:18 Consult Physician Routine Consulting Provider: Gurjit Polk Consult Reason/Comments: thrombosis Do you want consulting provider notified?: Yes Primary care physician: Sara Gallardo - Discharge Diagnosis(es) (1) Thrombosis of pelvic vein Current Visit: Yes Status: Acute (2) Phlebitis and thrombophlebitis Current Visit: Yes Status: Acute Hospital Course: Patient presented with right flank pain 5 weeks out from [facility] using da justin. She was diagnosed with a DVT in her right ovarian vein. She was put on unasyn and heparin, now changed to eliquis. She has been seen by vascular and hematology. She will follow up with them outpatient and see me in one week. She will go home on eliquis and amoxicillin due to phlebitis. She has no pain and no vaginal bleeding. Incisions are completely healed and intact. She knows to return if the pain worsens or she has any sudden shortness of breath or chest pain. Patient Condition at Discharge: Stable Plan - Discharge Summary New Discharge Prescriptions: ALPRAZolam [Xanax] 0.25 mg PO HS PRN #30 tab PRN Reason: Anxiety Amoxicillin 250 mg PO Q8H #21 cap Apixaban [Eliquis] 10 mg PO BID #14 tab Discharge Medication List Escitalopram [Lexapro] 10 mg PO DAILY 08/25/15 [History] Levothyroxine Sodium [Synthroid] 50 mcg PO HS 10/01/16 [History] ALPRAZolam [Xanax] 0.25 mg PO HS PRN #30 tab 10/04/16 [Rx] Amoxicillin 250 mg PO Q8H #21 cap 10/04/16 [Rx] Apixaban [Eliquis] 10 mg PO BID #14 tab 10/04/16 [Rx] Follow up Appointment(s)/Referral(s): Gurjit Polk MD [STAFF PHYSICIAN] - 2 Weeks Bessie Hernández DO [Doctor of Osteopathic Medicine] - 1 Week Sara Gallardo MD [Primary Care Provider] - 1-2 days Deven Blanca MD [STAFF PHYSICIAN] - 4 Weeks Discharge Disposition: HOME SELF-CARE
--- NOTE | 2016-10-07 15:49 | CDI ---
In responding to this query, please exercise your independent professional judgment. The [facility] Coding Staff and Clinical Documentation Specialists appreciate your assistance in clarifying documentation, maintaining compliance with coding guidelines, accurately documenting patients condition and capturing severity of illness. The fact that a question is asked does not imply that any particular answer is desired or expected. Communication forms are a method of clarifying documentation and are not made part of the Legal Health Record. Thank you in advance for your clarification. Last Revision, Jul 2016 Benny Mccarthy [address] [facility] [place] [address] Documentation Clarification Form Date: 10/07/2016 3:35:00 PM From: Marianne Sosa Admit Date: 10/02/2016 3:01:00 AM Patient Name: Lashonda Rosales Visit Number: [id number] Discharge Date: 10/07/46 Dr. Bessie Hernández Thrombosis and thrombophlebitis of pelvic vein are documented in the H&P & DS. History/Risk Factors: S/P total laparoscopic hysterectomy and left salpingectomy five weeks prior to this admission. Hx of prior DVT. Clinical Indicators: Severe painn Treatment: IV antibiotics and IV Heparin In order to accurately reflect this patients severity of illness, please clarify if the thrombosis/thrombophlebitis of pelvic vein is: An expected post-procedural or post-surgical condition Integral to the procedure Inherent to the procedure An unexpected post-procedural or post-surgical condition, related to surgical care Other, please specify Unable to determine Please document in your progress notes and discharge summary in order to capture severity of illness and risk of mortality. Include clinical findings that support your diagnosis. FYI: Press F11 to launch patient chart __X___ Place X here if this finding has no clinical significance, is not applicable or if you are not able to provide any additional documentation. Marianne Sosa, HANSEL, CCS, AHIMT Certified I-10 Laboratory Mechanical Technician/Fletcher/Laboratory Mechanical Technician II If you have any questions or concerns please contact Marjorie Cruz, Psychologist Industrial Organizational, Benny Mccarthy @ [phone] [facility]
[2016-10-10] MEDS ORDERED: APIXABAN 5 MG TAB PO SCH (09:00)
== END 2016-10-04 14:39 | disposition home or self-care (01) | DRG 300 ==
LOC: EC 20:38 → 4MS4W 10-02 03:01
PROVIDERS: ADMIT Obstetrics & Gynecology; ATTEND Obstetrics & Gynecology
DX: I80.8 Phlebitis and thrombophlebitis of other sites (principal); I82.890 Acute embolism and thrombosis of other specified veins; F32.9 Major depressive disorder, single episode, unspecified; F41.9 Anxiety disorder, unspecified; Z79.899 Other long term (current) drug therapy; Z86.718 Personal history of other venous thrombosis and embolism; Z87.81 Personal history of (healed) traumatic fracture; Z90.710 Acquired absence of both cervix and uterus; Z90.721 Acquired absence of ovaries, unilateral; Z87.891 Personal history of nicotine dependence
CPT/HCPCS: 36415; 74177; 76856; 80053; 81003; 82150; 83690; 85025; 85730; 87086; 93975; 96361; 96365; 96368; 96375; 96376; 99285

== ENCOUNTER → 2018-07-05 | Outpatient (CLI) | payer BC ==
--- NOTE | 2018-07-07 08:39 | MM ---
Reason for exam: screening (asymptomatic). Last mammogram was performed 6 years and 6 months ago. Physical Findings: A clinical breast exam by your physician is recommended on an annual basis and results should be correlated with mammographic findings. MG Screening Mammo w CAD Bilateral CC and MLO view(s) were taken. Prior study comparison: January 04, 2012, mammogram. The breast tissue is heterogeneously dense. This may lower the sensitivity of mammography. Focal asymmetry, new in right upper MLO, 10cm from nipple. This finding is changed when compared with previous exams. ASSESSMENT: Incomplete: need additional imaging evaluation, BI-RAD 0 RECOMMENDATION: Special view mammogram of the right breast. If lesion persists on supplemental views, image directed ultrasound is recommended. [facility] will attempt to contact patient to return for supplemental views and ultrasound if indicated.
== END | disposition home or self-care (01) ==
LOC: RADMAMWWP 14:55
PROVIDERS: ATTEND Family Medicine
DX: Z12.31 Encounter for screening mammogram for malignant neoplasm of breast (principal)
CPT/HCPCS: 77067

== ENCOUNTER → 2018-07-11 | Outpatient (CLI) | payer BC ==
--- NOTE | 2018-07-11 12:56 | MM ---
Reason for exam: additional evaluation requested from abnormal screening. Last mammogram was performed less than 1 month ago. Physical Findings: Nurse did not find any significant physical abnormalities on exam. MG 3D Work Up W/Cad RT Spot compression CC, spot compression MLO, and ML view(s) were taken of the right breast. Prior study comparison: July 05, 2018, bilateral MG screening mammo w CAD. January 04, 2012, mammogram. The breast tissue is heterogeneously dense. This may lower the sensitivity of mammography. There is no discrete abnormality on ML, CC compression disperses on MLO compression. These results were verbally communicated with the patient and result sheet given to the patient on 07/11/18. ASSESSMENT: Probably benign, BI-RAD 3 RECOMMENDATION: Follow-up diagnostic mammogram of the right breast in 6 months.
== END | disposition home or self-care (01) ==
LOC: RADMAMWWP 12:09
PROVIDERS: ATTEND Family Medicine
DX: R92.8 Other abnormal and inconclusive findings on diagnostic imaging of breast (principal)
CPT/HCPCS: 77061; 77065

== ENCOUNTER → 2020-04-15 | Outpatient (CLI) | payer BC | END | disposition home or self-care (01) | LOC: LABWHC1 12:18 | PROVIDERS: ATTEND Pediatrics Pediatric Infectious Diseases | DX: Z03.818 Encounter for observation for suspected exposure to other biological agents ruled out (principal) | CPT/HCPCS: 87635; C9803 ==

== ENCOUNTER → 2020-05-22 | Outpatient (CLI) | payer BC ==
--- NOTE | 2020-05-23 09:15 | MM ---
Reason for exam: follow-up at short interval from prior study. Last mammogram was performed 1 year and 10 months ago. History: Took hormonal contraceptives for 10 years beginning at age 18. Physical Findings: Nurse did not find any significant physical abnormalities on exam. MG 3D Diag Mammo W/Cad HENNA Bilateral CC and MLO view(s) were taken. Prior study comparison: July 11, 2018, right breast MG 3d work up w/cad RT. July 05, 2018, bilateral MG screening mammo w CAD. The breast tissue is heterogeneously dense. This may lower the sensitivity of mammography. There is chronic nodularity in the right breast. There is no discrete abnormality. These results were verbally communicated with the patient and result sheet given to the patient on 05/22/20. ASSESSMENT: Negative, BI-RAD 1 RECOMMENDATION: Routine screening mammogram of both breasts in 1 year.
== END | disposition home or self-care (01) ==
LOC: RADMAMWWP 14:07
PROVIDERS: ATTEND Family Medicine
DX: R92.8 Other abnormal and inconclusive findings on diagnostic imaging of breast (principal)
CPT/HCPCS: 77062; 77066

== ENCOUNTER 2023-03-09 13:56 | Emergency (ER) | payer BC ==
--- NOTE | 2023-03-09 14:17 | ED ---
Headache HPI - General Source: patient, RN notes reviewed Mode of arrival: ambulatory Limitations: no limitations <Maulik Giraldo - Last Filed: 03/09/23 14:15> <Jorge Reyes - Last Filed: 03/09/23 16:09> - General Chief Complaint: Headache Stated Complaint: Weakness,Headache-sent from urgent care Time Seen by Provider: 03/09/23 14:14 - History of Present Illness Initial Comments: 48-year-old female presents emergency Department with chief complaint of denies weakness, headache. Patient states started a headache recently states that she has no history migraine she states she has generalized weakness denies any focal weakness. Patient states the headache is improved some. Patient was sent over from urgent care for further evaluation. (Maulik Giraldo) 48-year-old female presenting to the ED with a chief complaint of headache. Patient states 3 days ago, onset of headache. Patient reports no history of headaches. Notes associated floaters and nausea with this. Denies chest pain or shortness of breath. No other complaints. (Jorge Reyes) - Related Data Home Medications Medication Instructions Recorded Confirmed Levothyroxine Sodium [Synthroid] 50 mcg PO HS 10/01/16 03/09/23 ALPRAZolam [Xanax] 0.5 mg PO DAILY PRN 03/09/23 03/09/23 Escitalopram [Lexapro] 20 mg PO HS 03/09/23 03/09/23 busPIRone HCL [Buspar] 7.5 mg PO HS 03/09/23 03/09/23 Allergies Allergy/AdvReac Type Severity Reaction Status Date / Time No Known Allergies Allergy Verified 03/09/23 15:40 Review of Systems ROS Other: All systems not noted in ROS Statement are negative. <Maulik Giraldo - Last Filed: 03/09/23 14:15> ROS Other: All systems not noted in ROS Statement are negative. <Jorge Reyes - Last Filed: 03/09/23 16:09> ROS Statement: Those systems with pertinent positive or pertinent negative responses have been documented in the HPI. Past Medical History Past Medical History: Deep Vein Thrombosis (DVT), Thyroid Disorder Additional Past Medical History / Comment(s): GOITER ON THE THYROID, DVT-LEFT LEG following a left ankle fracture in 2013 History of Any Multi-Drug Resistant Organisms: None Reported Past Surgical History: Section, Hysterectomy, Uterine Ablation Additional Past Surgical History / Comment(s): C SECTION X 2, UTERINE ABLATION, HYSTEROSCOPY Past Anesthesia/Blood Transfusion Reactions: No Reported Reaction Past Psychological History: Anxiety, Depression Past Alcohol Use History: Rare Past Drug Use History: None Reported - Past Family History Mother Family Medical History: No Reported History Sister(s) Additional Family Medical History / Comment(s): Positive for MTHRF heterozygous, no history of clots <Maulik Giraldo - Last Filed: 03/09/23 14:15> General Exam <Maulik Giraldo - Last Filed: 03/09/23 14:15> General appearance: alert, in no apparent distress Eye exam: Present: normal appearance ENT exam: Present: mucous membranes moist Neck exam: Present: normal inspection Respiratory exam: Present: normal lung sounds bilaterally Cardiovascular Exam: Present: regular rate, normal rhythm GI/Abdominal exam: Present: soft Extremities exam: Present: other ( Strength and sensation equal and intact of bilateral upper lower extremity is.) Neurological exam: Present: alert, oriented X3, CN II-XII intact (Finger to nose, rapid alternate hand movements, [id number] intact.) Skin exam: Present: warm, dry <Jorge Reyes - Last Filed: 03/09/23 16:09> - General Exam Comments Initial Comments: Visual Physical Exam Vital signs reviewed General: Well-appearing, nontoxic, no acute distress. Head: Normocephalic, atraumatic Eyes: PERRLA, EOMI ENT: Airway patent Chest: Nonlabored breathing Skin: No visual rash, normal skin tone Neuro: Alert and oriented 3 Musculoskeletal: No gross abnormalities (Maulik Giraldo) Course Vital Signs 03/09/23 14:10 Temperature 98.0 F Pulse Rate 106 H Respiratory 18 Rate Blood Pressure 138/86 O2 Sat by Pulse 99 Oximetry Medical Decision Making <Maulik Giraldo - Last Filed: 03/09/23 14:15> - Lab Data Result diagrams: 03/09/23 14:50 03/09/23 14:50 <Jorge Reyes - Last Filed: 03/09/23 16:09> - Medical Decision Making I performed a quick note portion of this chart signed Maulik Dedoe Maulik King) Was pt. sent in by a medical professional or institution ([facility], [employer], urgent care, hospital, or long term...) When possible be specific @ -Urgent care Did you speak to anyone other than the patient for history (EMS, parent, family, police, friend...)? What history was obtained from this source @ -No Did you review nursing and triage notes (agree or disagree)? Why? @ -I reviewed and agree with nursing and triage notes Were old charts reviewed (outside hosp., previous admission, EMS record, old EKG, old radiological studies, urgent care reports/EKG's, long term records)? Report findings @ -No old charts were reviewed Differential Diagnosis (chest pain, altered mental status, abdominal pain women, abdominal pain men, vaginal bleeding, weakness, fever, dyspnea, syncope, headache, dizziness, GI bleed, back pain, seizure, CVA, palpatations, mental health, musculoskeletal)? @ -Differential Headache: Migraine, tension, cluster, carbon monoxide, central venous thrombosis, pension karma temporal arteritis, acute closure glaucoma, intercranial hemorrhage, mastoiditis, sinusitis, head injury, this is not meant to be an all-inclusive list. EKG interpreted by me (3pts min.). @ -As above X-rays interpreted by me (1pt min.). @ -None done CT interpreted by me (1pt min.). @ -Head CT interpreted by me showing no acute findings. U/S interpreted by me (1pt. min.). @ -None done What testing was considered but not performed or refused? (CT, X-rays, U/S, labs)? Why? @ -None What meds were considered but not given or refused? Why? @ -None Did you discuss the management of the patient with other professionals (professionals i.e. [facility], [employer], lab, RT, psych nurse, social insurance administrator, locomotive firer, teacher, staff electronic warfare officer, director case management)? Give summary @ -No Was smoking cessation discussed for >3mins.? @ -No Was critical care preformed (if so, how long)? @ -No Were there social determinants of health that impacted care today? How? (Homelessness, low income, unemployed, alcoholism, drug addiction, tr ansportation, low edu. Level, literacy, decrease access to med. care, penitentiary, rehab)? @ -No Was there de-escalation of care discussed even if they declined (Discuss DNR or withdrawal of care, Hospice)? DNR status @ -No What co-morbidities impacted this encounter? (DM, HTN, Smoking, COPD, CAD, Cancer, CVA, ARF, Chemo, Hep., AIDS, mental health diagnosis, sleep apnea, morbid obesity)? @ -None Was patient admitted / discharged? Hospital course, mention meds given and route, prescriptions, significant lab abnormalities, going to OR and other pertinent info. @ -Discharge 48-year-old female presenting with 3 days of headache with associated nausea. Laboratory studies including CBC, chemistry panel, UA unremarkable. Head CT showed no evidence of acute process. Patient discharged home in stable condition. Discussed return precautions with patient who verbalizes agreement. Undiagnosed new problem with uncertain prognosis? @ -No Drug Therapy requiring intensive monitoring for toxicity (Heparin, Nitro, Insulin, Cardizem)? @ -No Were any procedures done? @ -No Diagnosis/symptom? @ -Headache Acute, or Chronic, or Acute on Chronic? @ -Acute Uncomplicated (without systemic symptoms) or Complicated (systemic symptoms)? @ -Uncomplicated Side effects of treatment? @ -No Exacerbation, Progression, or Severe Exacerbation? @ -No Poses a threat to life or bodily function? How? (Chest pain, [place], [place], pneumonia, PE, COPD, DKA, ARF, appy, cholecystitis, CVA, Diverticulitis, Homicidal, Suicidal, threat to staff... and all critical care pts) @ -No (Jorge Reyes) - Lab Data Lab Results 03/09/23 03/09/23 03/09/23 Range/Units 14:15 14:50 14:50 WBC 8.7 (3.8-10.6) k/uL RBC 4.95 (3.80-5.40) m/uL Hgb 14.7 (11.4-16.0) gm/dL Hct 42.9 (34.0-46.0) % MCV 86.8 (80.0-100.0) fL MCH 29.7 (25.0-35.0) pg MCHC 34.2 (31.0-37.0) g/dL RDW 13.1 (11.5-15.5) % Plt Count 279 (150-450) k/uL MPV 7.2 Neutrophils % 62 % Lymphocytes % 29 % Monocytes % 5 % Eosinophils % 2 % Basophils % 0 % Neutrophils # 5.4 (1.3-7.7) k/uL Lymphocytes # 2.5 (1.0-4.8) k/uL Monocytes # 0.5 (0-1.0) k/uL Eosinophils # 0.2 (0-0.7) k/uL Basophils # 0.0 (0-0.2) k/uL Sodium (137-145) mmol/L Potassium (3.5-5.1) mmol/L Chloride (98-107) mmol/L Carbon Dioxide (22-30) mmol/L Anion Gap mmol/L BUN (7-17) mg/dL Creatinine (0.52-1.04) mg/dL Est GFR (CKD-EPI)AfAm (>60 ml/min/1.73 sqM) Est GFR (CKD-EPI)NonAf (>60 ml/min/1.73 sqM) Glucose (74-99) mg/dL Calcium (8.4-10.2) mg/dL Magnesium (1.6-2.3) mg/dL Total Bilirubin (0.2-1.3) mg/dL AST (14-36) U/L ALT (4-34) U/L Alkaline Phosphatase (38-126) U/L Total Protein (6.3-8.2) g/dL Albumin (3.5-5.0) g/dL Urine Color Colorless Urine Appearance Clear (Clear) Urine pH 5.5 (5.0-8.0) Ur Specific [place] 1.009 (1.001-1.035) Urine Protein Negative (Negative) Urine Glucose (UA) Negative (Negative) Urine Ketones Negative (Negative) Urine Blood Negative (Negative) Urine Nitrite Negative (Negative) Urine Bilirubin Negative (Negative) Urine Urobilinogen <2.0 (<2.0) mg/dL Ur Leukocyte Esterase Negative (Negative) Influenza Type A (PCR) Not Detected (Not Detectd) Influenza Type B (PCR) Not Detected (Not Detectd) RSV (PCR) Not Detected (Not Detectd) SARS-CoV-2 (PCR) Not Detected (Not Detectd) 10/04/23 Range/Units 14:50 WBC (3.8-10.6) k/uL RBC (3.80-5.40) m/uL Hgb (11.4-16.0) gm/dL Hct (34.0-46.0) % MCV (80.0-100.0) fL MCH (25.0-35.0) pg MCHC (31.0-37.0) g/dL RDW (11.5-15.5) % Plt Count (150-450) k/uL MPV Neutrophils % % Lymphocytes % % Monocytes % % Eosinophils % % Basophils % % Neutrophils # (1.3-7.7) k/uL Lymphocytes # (1.0-4.8) k/uL Monocytes # (0-1.0) k/uL Eosinophils # (0-0.7) k/uL Basophils # (0-0.2) k/uL Sodium 138 (137-145) mmol/L Potassium 4.1 (3.5-5.1) mmol/L Chloride 101 (98-107) mmol/L Carbon Dioxide 26 (22-30) mmol/L Anion Gap 11 mmol/L BUN 12 (7-17) mg/dL Creatinine 0.61 (0.52-1.04) mg/dL Est GFR (CKD-EPI)AfAm >90 (>60 ml/min/1.73 sqM) Est GFR (CKD-EPI)NonAf >90 (>60 ml/min/1.73 sqM) Glucose 109 H (74-99) mg/dL Calcium 9.2 (8.4-10.2) mg/dL Magnesium 2.2 (1.6-2.3) mg/dL Total Bilirubin 0.5 (0.2-1.3) mg/dL AST 16 (14-36) U/L ALT 21 (4-34) U/L Alkaline Phosphatase 77 (38-126) U/L Total Protein 7.7 (6.3-8.2) g/dL Albumin 4.3 (3.5-5.0) g/dL Urine Color Urine Appearance (Clear) Urine pH (5.0-8.0) Ur Specific [place] (1.001-1.035) Urine Protein (Negative) Urine Glucose (UA) (Negative) Urine Ketones (Negative) Urine Blood (Negative) Urine Nitrite (Negative) Urine Bilirubin (Negative) Urine Urobilinogen (<2.0) mg/dL Ur Leukocyte Esterase (Negative) Influenza Type A (PCR) (Not Detectd) Influenza Type B (PCR) (Not Detectd) RSV (PCR) (Not Detectd) SARS-CoV-2 (PCR) (Not Detectd) - EKG Data EKG Comments: EKG shows a sinus rhythm at [address]-T wave changes. CA 148, QRS 86, QT/QTc 354/396. (Jorge Reyes) Disposition <Maulik Giraldo - Last Filed: 03/09/23 14:15> Is patient prescribed a controlled substance at d/c from ED?: No Time of Disposition: 16:09 <Jorge Reyes - Last Filed: 03/09/23 16:09> Clinical Impression: Headache Disposition: HOME SELF-CARE Condition: Good Instructions (If sedation given, give patient instructions): Acute Headache (ED) Additional Instructions: Please return to the Emergency Department if symptoms worsen or any other concerns. Referrals: Sara Gallardo MD [Primary Care Provider] - 1-2 days
[2023-03-09 15:00] LABS: Appearance,Urine Clear (Clear); Bilirubin,Urine Negative (Negative); Blood,Urine Negative (Negative); Color,Urine Colorless; Glucose,Urine (UA) Negative (Negative); Ketones,Urine Negative (Negative); Leukocyte Esterase,Urine Negative (Negative); Nitrite,Urine Negative (Negative); PH, Urine 5.5 (5.0-8.0); Protein,Urine Negative (Negative); Specific Gravity,Urine 1.009 (1.001-1.035); Urobilinogen,Urine <2.0 mg/dL (<2.0)
[2023-03-09 15:04] LABS: Basophils % (A) 0 %; Eosinophils # (A) 0.2 k/uL (0-0.7); Eosinophils % (A) 2 %; HCT 42.9 % (34.0-46.0); HGB 14.7 gm/dL (11.4-16.0); Lymphocytes # (A) 2.5 k/uL (1.0-4.8); Lymphocytes % (A) 29 %; MCH 29.7 pg (25.0-35.0); MCHC 34.2 g/dL (31.0-37.0); MCV 86.8 fL (80.0-100.0); Mean Platelet Volume 7.2; Monocytes # (A) 0.5 k/uL (0-1.0); Monocytes % (A) 5 %; Neutrophils # (A) 5.4 k/uL (1.3-7.7); Neutrophils % (A) 62 %; Platelet Count 279 k/uL (150-450); RBC 4.95 m/uL (3.80-5.40); RDW 13.1 % (11.5-15.5); WBC 8.7 k/uL (3.8-10.6)
[2023-03-09 15:10] LABS: ALT 21 U/L (4-34); AST 16 U/L (14-36); African American GFR (CKD) >90 (>60 ml/min/1.73 sqM); Albumin 4.3 g/dL (3.5-5.0); Alkaline Phosphatase 77 U/L (38-126); Anion Gap 11 mmol/L; Blood Urea Nitrogen 12 mg/dL (7-17); Calcium 9.2 mg/dL (8.4-10.2); Carbon Dioxide 26 mmol/L (22-30); Chloride 101 mmol/L (98-107); Glucose 109 mg/dL (74-99); Magnesium 2.2 mg/dL (1.6-2.3); Non-African American GFR(CKD) >90 (>60 ml/min/1.73 sqM); Potassium 4.1 mmol/L (3.5-5.1); Sodium 138 mmol/L (137-145); Total Bilirubin 0.5 mg/dL (0.2-1.3); Total Protein 7.7 g/dL (6.3-8.2)
[2023-03-09] MEDS ORDERED: KETOROLAC 15 MG/ML 1 ML VIAL IVP STA (15:33)
--- NOTE | 2023-03-09 15:51 | CT ---
EXAMINATION TYPE: CT brain wo con CT DLP: 1182.4 mGycm, Automated exposure control for dose reduction was used. DATE OF EXAM: 03/09/2023 3:47 PM COMPARISON: None. CLINICAL INDICATION:Female, 48 years old with history of intractable mares, headache TECHNIQUE: Brain: Multiple axial CT images of the brain were obtained without IV contrast. Coronal and sagittal reformats reviewed. FINDINGS: Brain: Extra-axial spaces: No abnormal extra-axial fluid collections. Ventricular system: Within normal limits Cerebral parenchyma: No acute intraparenchymal hemorrhage or mass effect. The coughlin-white junction is well differentiated. Cerebellum: Unremarkable. Mass effect: No evidence of midline shift. Intracranial vasculature: unremarkable Soft tissues: Normal. Calvarium/osseous structures: No depressed skull fracture. Paranasal sinuses and mastoid air cells: Clear Visualized orbits: Orbital contents are intact. IMPRESSION: No acute intracranial process.
[2023-03-09 16:16] VITALS: BP 112/69; PULSE 72; RESP 17; TEMP 98.3
== END 2023-03-09 16:18 | disposition home or self-care (01) ==
LOC: EC 13:56
DX: R51.9 Headache, unspecified (principal); E07.9 Disorder of thyroid, unspecified; F41.9 Anxiety disorder, unspecified; F32.A Depression, unspecified; Z79.890 Hormone replacement therapy; Z79.899 Other long term (current) drug therapy; Z20.822 Contact with and (suspected) exposure to COVID-19
CPT/HCPCS: 36415; 93005; 80053; 83735; 85025; 81003; 87636; 70450; 99284; 96374; J1885

== ENCOUNTER → 2024-08-24 | Outpatient (CLI) | payer SELFPAY ==
--- NOTE | 2024-08-24 14:55 | MM ---
Reason for Exam: Screening (asymptomatic). Last mammogram was performed 2 year(s) and 1 month(s) ago. Patient History: Menarche at age 14. First Full-Term at age 30. Hysterectomy at age 41. Hormonal Contraceptives for 10 years from age 18 until age 28. Sister had breast cancer, left, age 51. Risk Values: Blossom 5 year model risk: 1.7%. NCI Lifetime model risk: 17.5%. Prior Study Comparison: 07/11/2018 Right Diagnostic Mammogram, [facility]. 05/22/2020 Bilateral Diagnostic Mammogram, [facility]. 07/14/2022 Bilateral MG 3D screening mammo w/cad, [facility]. Tissue Density: The breasts are heterogeneously dense, which may obscure small masses. Findings: Analyzed By CAD. There is no suspicious group of microcalcifications or new suspicious mass in either breast. Overall Assessment: Negative, BI-RAD 1 Management: Screening Mammogram of both breasts in 1 year. . Patient should continue monthly self-breast exams. A clinical breast exam by your physician is recommended on an annual basis. This exam should not preclude additional follow-up of suspicious palpable abnormalities. Note on Blossom scores and lifetime risk: 1. A Blossom score greater than 3% is considered moderate risk. If this is the case, consider specialist referral to assess eligibility for a risk reducing agent. 2. If overall lifetime risk for the development of breast cancer is 20% or higher, the patient may qualify for future screening with alternating mammogram and breast MRI. [facility], , 08/24/2024 2:52 PM. Electronically signed and approved by: Mor Cohen M.D.
== END | disposition home or self-care (01) ==
LOC: RADMAMWWP 14:22
PROVIDERS: ATTEND Family Medicine
DX: Z12.31 Encounter for screening mammogram for malignant neoplasm of breast (principal); R92.333 Mammographic heterogeneous density, bilateral breasts; Z80.3 Family history of malignant neoplasm of breast; Z92.0 Personal history of contraception
CPT/HCPCS: 77063; 77067